=== PATIENT | female | born 1960 | race Caucasian/White ===

== ENCOUNTER 2018-11-24 12:08 | Emergency (ER) | payer MEDICARE, OTHER ==
[~2018-11-24] VITALS: Ht 177.8 cm; Wt 79.4 kg
[2018-11-24] MEDS ORDERED: AUGMENTIN 875-1 EACH (12:25)
[2018-11-24] MEDS ORDERED: CLINDAMYCIN HC300 MG PO (12:25)
[2018-11-24] MEDS ORDERED: BIAXIN 500 MG500 M2 PO (12:26)
[2018-11-24] MEDS ORDERED: SALAGEN7.5 MG PO (12:27)
[2018-11-24] MEDS ORDERED: CYMBALTA30 MG PO (12:50)
[2018-11-24] MEDS ORDERED: IMITREX100 MG PO (12:50)
[2018-11-24] MEDS ORDERED: CELEBREX 200 M200 M1 (12:50)
[2018-11-24 12:51] LABS: ABSOLUTE EOSINOPHILS 0.1 thou/uL (0.0-0.7); ABSOLUTE LYMPHOCYTES 1.8 thou/uL (0.8-5.3); ABSOLUTE MONOCYTES 0.5 thou/uL (0.0-1.2); ABSOLUTE NEUTROPHILS 3.1 thou/uL (1.6-8.1); BASOPHILS 0.7 %; EOSINOPHILS 2.6 %; HEMATOCRIT 43.3 % (37.0-47.0); HEMOGLOBIN 14.5 gm/dL (12.0-15.0); LYMPHOCYTES 32.1 %; MCH 28.8 pg (26.0-34.0); MCHC 33.6 g/dL (28.0-37.0); MCV 85.8 fL (80.0-100.0); MONOCYTES 9.6 %; MPV 9.4 fl. (7.2-11.1); NUCLEATED RBCS 0 /100WBC; PLATELET COUNT* 195 thou/uL (150-400); RBC 5.04 mil/uL (4.20-5.00); RDW-CV 12.8 % (10.5-14.5); WBC 5.7 thou/uL (4.0-11.0)
[2018-11-24] MEDS ORDERED: PROTONIX 20 MG20 M1 PO (12:51)
[2018-11-24] MEDS ORDERED: TRAMADOL 50 MG50 MG PO (12:51)
[2018-11-24] MEDS ORDERED: SYNTHROID75 MCG PO (12:51)
[2018-11-24] MEDS ORDERED: PREDNISONE 20 M20 MG PO (12:53)
[2018-11-24 13:12] LABS: ALBUMIN 3.8 g/dL (3.4-5.0); CALCIUM 9.5 mg/dL (8.5-10.1); CREATININE 0.7 mg/dL (0.6-1.3); POTASSIUM 3.7 mmol/L (3.5-5.1); TOTAL BILIRUBIN 0.3 mg/dL (<0.1-1.0); TOTAL PROTEIN 7.7 g/dL (6.4-8.2)
[2018-11-24 13:23] LABS: NT-PRO BRAIN NAT PEPTIDE 14 pg/mL (<300); TROPONIN-I LEVEL <0.06 ng/mL (<0.06)
[2018-11-24 13:44] LABS: URINE BILIRUBIN NEGATIVE (Negative); URINE BLOOD 1+ (Negative); URINE CLARITY CLEAR; URINE COLOR YELLOW; URINE GLUCOSE-RANDOM NEGATIVE (Negative); URINE KETONES NEGATIVE (Negative); URINE LEUKOCYTES-REFLEX NEGATIVE (Negative); URINE NITRITE-REFLEX NEGATIVE (Negative); URINE PROTEIN NEGATIVE (Negative); URINE SPECIFIC GRAVITY >= 1.030 (1.005-1.030); URINE UROBILINOGEN 0.2 E.U./dl (0.2-1.0)
[2018-11-24 14:09] LABS: SQUAMOUS 0-3 Few /LPF (0-3); URINE WBC-REFLEX 0-5 Rare /HPF (0-5)
[2018-11-24 14:13] LABS: URINE RBC 3-10 Few /HPF (0-2)
[2018-11-24 14:14] LABS: BACTERIA-REFLEX 1-9 Few /HPF (None Seen); CASTS None Seen /LPF (None Seen); CRYSTALS None Seen /LPF (None Seen); MUCUS >6 Heavy strn/LPF (None Seen)
[2018-11-24] MEDS ORDERED: FLONASE 0.05%50 MCG NASAL (14:29)
[2018-11-24 14:47] VITALS: BP 126/77
--- NOTE | 2018-11-24 15:49 | EKG ---
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
== END 2018-11-24 14:47 | disposition home or self-care (01) ==
LOC: M.ERS 12:08
PROVIDERS: Nurse Practitioner Family
DX: R09.81 Nasal congestion (principal); M79.18 Myalgia, other site; E03.9 Hypothyroidism, unspecified; M06.9 Rheumatoid arthritis, unspecified; Z88.8 Allergy status to other drugs, medicaments and biological substances

== ENCOUNTER 2020-02-22 14:01 | Emergency (ER) | payer MEDICARE, OTHER ==
[~2020-02-22] VITALS: Ht 177.8 cm; Wt 90.7 kg
[~2020-02-22 14:01] MED LIST: AUGMENTIN 875-1 EACH; BIAXIN 500 MG500 M2 PO; CELEBREX 200 M200 M1; CLINDAMYCIN HC300 MG PO; CYMBALTA30 MG PO; FLONASE 0.05%50 MCG NASAL; IMITREX100 MG PO; PREDNISONE 20 M20 MG PO; PROTONIX 20 MG20 M1 PO; SALAGEN7.5 MG PO; SYNTHROID75 MCG PO; TRAMADOL 50 MG50 MG PO
[2020-02-22] MEDS ORDERED: AMBIEN 10 MG TA10 MG PO (14:33)
[2020-02-22] MEDS ORDERED: LEVAQUIN 500 M500 M1 PO (16:04)
[2020-02-22] MEDS ORDERED: NORCO 5-325 TA1 EAC2 PO (16:04)
[2020-02-22 16:14] VITALS: BP 130/92
== END 2020-02-22 16:14 | disposition home or self-care (01) ==
LOC: M.ERS 14:01
DX: J32.9 Chronic sinusitis, unspecified (principal); R22.0 Localized swelling, mass and lump, head; M06.9 Rheumatoid arthritis, unspecified; E03.9 Hypothyroidism, unspecified; F17.210 Nicotine dependence, cigarettes, uncomplicated; Z88.8 Allergy status to other drugs, medicaments and biological substances

== ENCOUNTER 2020-05-05 06:36 | Inpatient (IN) | payer MEDICARE, OTHER ==
[~2020-05-05] VITALS: Ht 177.8 cm; Wt 81.6 kg
[~2020-05-05 06:36] MED LIST changes: +AMBIEN 10 MG TA10 MG PO; +LEVAQUIN 500 M500 M1 PO; +NORCO 5-325 TA1 EAC2 PO
[2020-05-05 06:41] VITALS: BP 151/115
[2020-05-05 06:57] LABS: ABSOLUTE BASOPHILS 0.1 thou/uL (0.0-0.2); ABSOLUTE EOSINOPHILS 0.1 thou/uL (0.0-0.7); ABSOLUTE LYMPHOCYTES 3.2 thou/uL (0.8-5.3); ABSOLUTE MONOCYTES 1.3 thou/uL (0.0-1.2); ABSOLUTE NEUTROPHILS 11.9 thou/uL (1.6-8.1); BASOPHILS 0.5 %; EOSINOPHILS 0.5 %; HEMATOCRIT 48.9 % (37.0-47.0); HEMOGLOBIN 16.3 gm/dL (12.0-15.0); LYMPHOCYTES 19.3 %; MCH 28.9 pg (26.0-34.0); MCHC 33.5 g/dL (28.0-37.0); MCV 86.3 fL (80.0-100.0); MONOCYTES 7.6 %; MPV 8.2 fl. (7.2-11.1); NUCLEATED RBCS 0 /100WBC; PLATELET COUNT* 261 thou/uL (150-400); POLYS 72.1 %; RBC 5.66 mil/uL (4.20-5.00); RDW-CV 13.7 % (10.5-14.5); WBC 16.6 thou/uL (4.0-11.0)
[2020-05-05 07:04] LABS: CALCIUM 9.2 mg/dL (8.5-10.1); CREATININE 1.2 mg/dL (0.6-1.3); POTASSIUM 3.8 mmol/L (3.5-5.1)
[2020-05-05 07:05] LABS: INR 0.9; PROTIME 9.3 Seconds (9.20-11.50)
[2020-05-05 07:15] LABS: ALBUMIN 4.1 g/dL (3.4-5.0); TOTAL BILIRUBIN 0.2 mg/dL (<0.1-1.0); TOTAL PROTEIN 8.2 g/dL (6.4-8.2)
[2020-05-05 07:16] LABS: URINE BILIRUBIN NEGATIVE (Negative); URINE BLOOD TRACE (Negative); URINE CLARITY CLEAR; URINE COLOR YELLOW; URINE GLUCOSE-RANDOM NEGATIVE (Negative); URINE KETONES NEGATIVE (Negative); URINE LEUKOCYTES-REFLEX NEGATIVE (Negative); URINE NITRITE-REFLEX NEGATIVE (Negative); URINE PROTEIN NEGATIVE (Negative); URINE SPECIFIC GRAVITY >= 1.030 (1.005-1.030); URINE UROBILINOGEN 0.2 E.U./dl (0.2-1.0)
[2020-05-05 09:06] VITALS: BP 142/88
[2020-05-05 14:12] LABS: MPV 8.2 fl. (7.2-11.1); NUCLEATED RBCS 0 /100WBC
[2020-05-05 14:13] LABS: ABSOLUTE BASOPHILS 0.1 thou/uL (0.0-0.2); ABSOLUTE EOSINOPHILS 0.1 thou/uL (0.0-0.7); ABSOLUTE LYMPHOCYTES 1.9 thou/uL (0.8-5.3); ABSOLUTE MONOCYTES 0.8 thou/uL (0.0-1.2); ABSOLUTE NEUTROPHILS 10.3 thou/uL (1.6-8.1); BASOPHILS 0.7 %; EOSINOPHILS 0.5 %; HEMATOCRIT 43.8 % (37.0-47.0); HEMOGLOBIN 14.5 gm/dL (12.0-15.0); LYMPHOCYTES 14.5 %; MCH 28.5 pg (26.0-34.0); MCHC 33.1 g/dL (28.0-37.0); MCV 86.1 fL (80.0-100.0); MONOCYTES 6.1 %; PLATELET COUNT* 209 thou/uL (150-400); POLYS 78.2 %; RBC 5.08 mil/uL (4.20-5.00); RDW-CV 13.8 % (10.5-14.5); WBC 13.2 thou/uL (4.0-11.0)
[2020-05-05 19:18] VITALS: BP 127/74
[2020-05-06 04:40] LABS: ABSOLUTE EOSINOPHILS 0.1 thou/uL (0.0-0.7); ABSOLUTE MONOCYTES 0.6 thou/uL (0.0-1.2); ABSOLUTE NEUTROPHILS 7.9 thou/uL (1.6-8.1); BASOPHILS 0.2 %; EOSINOPHILS 0.8 %; HEMATOCRIT 41.6 % (37.0-47.0); HEMOGLOBIN 13.9 gm/dL (12.0-15.0); MCH 28.6 pg (26.0-34.0); MCHC 33.3 g/dL (28.0-37.0); MCV 85.9 fL (80.0-100.0); MONOCYTES 5.9 %; MPV 8.7 fl. (7.2-11.1); NUCLEATED RBCS 0 /100WBC; PLATELET COUNT* 185 thou/uL (150-400); POLYS 74.1 %; RBC 4.85 mil/uL (4.20-5.00); RDW-CV 13.5 % (10.5-14.5); WBC 10.7 thou/uL (4.0-11.0)
[2020-05-06 04:44] LABS: CALCIUM 8.4 mg/dL (8.5-10.1); CREATININE 0.9 mg/dL (0.6-1.3); POTASSIUM 3.8 mmol/L (3.5-5.1)
[2020-05-06 21:30] VITALS: BP 126/76
[2020-05-07 04:06] LABS: ABSOLUTE EOSINOPHILS 0.1 thou/uL (0.0-0.7); ABSOLUTE LYMPHOCYTES 2.2 thou/uL (0.8-5.3); ABSOLUTE MONOCYTES 0.6 thou/uL (0.0-1.2); ABSOLUTE NEUTROPHILS 7.2 thou/uL (1.6-8.1); BASOPHILS 0.3 %; EOSINOPHILS 0.9 %; HEMATOCRIT 41.4 % (37.0-47.0); HEMOGLOBIN 13.9 gm/dL (12.0-15.0); LYMPHOCYTES 21.6 %; MCH 28.8 pg (26.0-34.0); MCHC 33.6 g/dL (28.0-37.0); MCV 85.7 fL (80.0-100.0); MONOCYTES 6.2 %; MPV 8.7 fl. (7.2-11.1); NUCLEATED RBCS 0 /100WBC; PLATELET COUNT* 180 thou/uL (150-400); RBC 4.83 mil/uL (4.20-5.00); RDW-CV 13.3 % (10.5-14.5); WBC 10.1 thou/uL (4.0-11.0)
[2020-05-07] MEDS ORDERED: DIFLUCAN100 MG PO (07:27)
[2020-05-07] MEDS ORDERED: PROTONIX40 M2 PO (07:27)
[2020-05-07 09:43] VITALS: BP 126/76
[2020-05-07 11:16] VITALS: BP 126/76
--- NOTE | 2020-05-11 07:38 | CON ---
[facility] [address] [place] [address] CONSULTATION Name: NOEMYKRIS Johnathan Room: [address] M.R.#: [id number] Admission: 05/05/20 Attend Phys: Omega Mcfarland Discharge: 05/07/20 Date of : 64 Report #: [id number] THIS REPORT FOR: //name// cc: Romeo Zaidi Russell J. DO ~ THIS REPORT FOR: //name// CC: Romeo Vo DO DATE OF SERVICE: 05/05/2020 REFERRING PHYSICIAN: Dr. Montague. REASON FOR CONSULTATION: Nausea, vomiting, and hematemesis. IMPRESSION: 1. Nausea, vomiting and hematemesis of uncertain etiology. 2. Chronic acid reflux, which appears to be poorly controlled. 3. Common variable immune deficiency, requiring chronic antibiotics and injections per her charge nurse in [place]. RECOMMENDATIONS: 1. The patient appears to be hemodynamically stable at this time. For this reason, we will proceed with an upper endoscopy tomorrow and make further recommendations thereafter. I have discussed the plans with the patient as well and she is agreeable to the same. 2. Further recommendation will be made after the endoscopy is performed. HISTORY OF PRESENT ILLNESS: The patient is a very pleasant 59-year-old white female who woke up at 3 in the morning with complaints of rather severe reflux, indigestion and heartburn with associated hematemesis. She had bright red blood. She does have problem with chronic acid reflux on a daily basis, but only takes Protonix on as needed basis. She denies any dysphagia, odynophagia, postprandial pain or any other issues. She denies any black stools, tarry stools or bloody stools. She has undergone endoscopic studies of her upper GI tract in the past, but it has been a number years since last were done. This would be performed in [place]. She denies any family history of any GI issues. She does take Celebrex on a regular basis to help with joint aches and pains as well. She is admitted to the hospital through the Emergency Room for further evaluation and treatment. ALLERGIES: [place] [address] CONSULTATION Name: KRIS SALGUERO Room: [address]#: [id number] Admission: 05/05/20 Attend Phys: Omega Mcfarland Discharge: 05/07/20 Date of : 64 Report #: [id number] CURRENT MEDICATIONS: Include pantoprazole p.r.n., Levaquin. She takes [place]. She sometimes will take Biaxin, Salagen, Imitrex, Celebrex, Cymbalta, Synthroid, Ultram, Ambien and she also takes an injection. She does rotate antibiotics and recently started on Bactrim, which she has not had for quite some time. PAST MEDICAL AND SURGICAL HISTORY: Remarkable for common variable immune deficiency disorder, hypothyroidism, migraines, chronic pain. She has never had any previous surgeries. SOCIAL HISTORY: The patient does smoke. She does not drink alcohol at all. FAMILY HISTORY: Negative. PHYSICAL EXAMINATION: GENERAL: A pleasant 59-year-old white female who is awake and alert. CARDIOPULMONARY: Benign. ABDOMEN: Soft and not tender. No rebound or guarding noted. LABORATORY DATA: From admission revealed a white count 16.6, hemoglobin 16.3, platelet count 261,000. Her sodium 139, potassium 3.8, chloride 103, bicarbonate 28, BUN 17, creatinine 1.2. Total bilirubin 0.2, alkaline phosphatase 110, AST 15, ALT 26, albumin is 4.1, COVID testing is negative. Her INR is 0.9. DISCUSSION: At the present time, the patient appears to be hemodynamically stable to undergo endoscopic studies. We will proceed with upper endoscopy tomorrow and make further recommendations thereafter. <ELECTRONICALLY SIGNED> By: Julian Butler DO 05/11/20 0738 1514 1558Julian Butler DO /nt
== END 2020-05-07 09:56 | disposition home or self-care (01) | DRG 378 ==
LOC: M.ERS 06:36 → M.TBA-ER 07:50 → M.3W 07:50
PROVIDERS: Emergency Medicine; Internal Medicine Gastroenterology; ADMIT Internal Medicine; ATTEND Internal Medicine
PROC: 0DJ08ZZ Inspection of Upper Intestinal Tract, Via Natural or Artificial Opening Endoscopic (ICD-10-PCS; principal; 2020-05-06)
DX: K92.2 Gastrointestinal hemorrhage, unspecified (principal); R65.10 Systemic inflammatory response syndrome (SIRS) of non-infectious origin without acute organ dysfunction; R71.0 Precipitous drop in hematocrit; K92.0 Hematemesis; M06.9 Rheumatoid arthritis, unspecified; E03.9 Hypothyroidism, unspecified; G89.29 Other chronic pain; K21.00 Gastro-esophageal reflux disease with esophagitis, without bleeding; G43.909 Migraine, unspecified, not intractable, without status migrainosus; E86.1 Hypovolemia; K44.9 Diaphragmatic hernia without obstruction or gangrene; Z20.828 Contact with and (suspected) exposure to other viral communicable diseases; K22.9 Disease of esophagus, unspecified; Z79.899 Other long term (current) drug therapy; Z88.8 Allergy status to other drugs, medicaments and biological substances

== ENCOUNTER → 2020-08-20 | Outpatient (CLI) | payer MEDICARE, OTHER ==
[~2020-08-20] MED LIST changes: +DIFLUCAN100 MG PO; +LIPITOR 20 MG T20 M1 PO; +PROTONIX40 M2 PO
== END ==
LOC: M.PC 08-13 09:00
PROVIDERS: ATTEND Physical Medicine & Rehabilitation
DX: M51.16 Intervertebral disc disorders with radiculopathy, lumbar region (principal); M47.26 Other spondylosis with radiculopathy, lumbar region; M48.07 Spinal stenosis, lumbosacral region; M79.605 Pain in left leg

== ENCOUNTER → 2020-08-22 | Outpatient (CLI) | payer MEDICARE, OTHER | END | disposition home or self-care (01) | LOC: M.PC 09:03 | PROVIDERS: ATTEND Physical Medicine & Rehabilitation | DX: M47.816 Spondylosis without myelopathy or radiculopathy, lumbar region (principal); M79.18 Myalgia, other site; M51.36 Other intervertebral disc degeneration, lumbar region; M48.061 Spinal stenosis, lumbar region without neurogenic claudication; M54.5 Low back pain; M21.821 Other specified acquired deformities of right upper arm; I10 Essential (primary) hypertension; E07.9 Disorder of thyroid, unspecified; F32.9 Major depressive disorder, single episode, unspecified; F41.9 Anxiety disorder, unspecified; G43.909 Migraine, unspecified, not intractable, without status migrainosus; G47.00 Insomnia, unspecified; Z98.890 Other specified postprocedural states; Z79.899 Other long term (current) drug therapy; Z88.8 Allergy status to other drugs, medicaments and biological substances ==

== ENCOUNTER → 2020-09-05 | Outpatient (CLI) | payer MEDICARE, OTHER | LOC: M.PC 09:45 | PROVIDERS: ATTEND Physical Medicine & Rehabilitation | DX: M51.16 Intervertebral disc disorders with radiculopathy, lumbar region (principal); M47.26 Other spondylosis with radiculopathy, lumbar region; M48.07 Spinal stenosis, lumbosacral region; M79.605 Pain in left leg ==

== ENCOUNTER → 2020-10-17 | Outpatient (CLI) | payer MEDICARE, OTHER | LOC: M.PC 08:33 | PROVIDERS: ATTEND Physical Medicine & Rehabilitation | DX: M51.17 Intervertebral disc disorders with radiculopathy, lumbosacral region (principal); M79.605 Pain in left leg; M47.26 Other spondylosis with radiculopathy, lumbar region ==

== ENCOUNTER → 2020-11-14 | Outpatient (CLI) | payer MEDICARE, OTHER | LOC: M.PC 09:57 | PROVIDERS: ATTEND Physical Medicine & Rehabilitation | DX: M47.26 Other spondylosis with radiculopathy, lumbar region (principal); M51.16 Intervertebral disc disorders with radiculopathy, lumbar region; M79.10 Myalgia, unspecified site; M79.605 Pain in left leg ==

== ENCOUNTER 2020-12-23 14:17 | Emergency (ER) | payer MEDICARE, OTHER ==
[~2020-12-23] VITALS: Ht 177.8 cm; Wt 81.7 kg
[2020-12-23] MEDS ORDERED: CLARITHROMYCIN250 M2 PO (14:25)
[2020-12-23 14:45] LABS: ABSOLUTE BASOPHILS 0.1 thou/uL (0.0-0.2); ABSOLUTE EOSINOPHILS 0.1 thou/uL (0.0-0.7); ABSOLUTE LYMPHOCYTES 2.4 thou/uL (0.8-5.3); ABSOLUTE MONOCYTES 0.8 thou/uL (0.0-1.2); ABSOLUTE NEUTROPHILS 5.6 thou/uL (1.6-8.1); BASOPHILS 0.7 %; EOSINOPHILS 0.9 %; HEMATOCRIT 43.9 % (37.0-47.0); HEMOGLOBIN 14.6 gm/dL (12.0-15.0); LYMPHOCYTES 27.3 %; MCH 29.6 pg (26.0-34.0); MCHC 33.3 g/dL (28.0-37.0); MCV 88.8 fL (80.0-100.0); MONOCYTES 8.8 %; MPV 8.6 fl. (7.2-11.1); NUCLEATED RBCS 0 /100WBC; PLATELET COUNT* 219 thou/uL (150-400); POLYS 62.3 %; RBC 4.94 mil/uL (4.20-5.00); RDW-CV 13.7 % (10.5-14.5); WBC 8.9 thou/uL (4.0-11.0)
[2020-12-23 14:57] LABS: CALCIUM 8.7 mg/dL (8.5-10.1); CREATININE 0.9 mg/dL (0.6-1.3); POTASSIUM 3.8 mmol/L (3.5-5.1)
[2020-12-23 15:07] LABS: ALBUMIN 3.4 g/dL (3.4-5.0); TOTAL BILIRUBIN 0.3 mg/dL (<0.1-1.0); TOTAL PROTEIN 7.2 g/dL (6.4-8.2)
[2020-12-23 16:14] LABS: URINE BILIRUBIN NEGATIVE (Negative); URINE BLOOD NEGATIVE (Negative); URINE CLARITY CLEAR; URINE COLOR YELLOW; URINE GLUCOSE-RANDOM NEGATIVE (Negative); URINE KETONES NEGATIVE (Negative); URINE LEUKOCYTES-REFLEX NEGATIVE (Negative); URINE NITRITE-REFLEX NEGATIVE (Negative); URINE PROTEIN NEGATIVE (Negative); URINE SPECIFIC GRAVITY <= 1.005 (1.005-1.030); URINE UROBILINOGEN 0.2 E.U./dl (0.2-1.0)
[2020-12-23] MEDS ORDERED: LEVOFLOXACIN500 MG PO (17:39)
[2020-12-23 17:45] VITALS: BP 130/86
== END 2020-12-23 17:47 | disposition home or self-care (01) ==
LOC: M.ERS 14:17
PROVIDERS: Physician Assistant
DX: J32.1 Chronic frontal sinusitis (principal); Z20.822 Contact with and (suspected) exposure to COVID-19; B34.9 Viral infection, unspecified; R53.81 Other malaise; M06.9 Rheumatoid arthritis, unspecified; E03.9 Hypothyroidism, unspecified; Z88.8 Allergy status to other drugs, medicaments and biological substances